=== PATIENT | male | born 1955 | race Caucasian/White ===

== ENCOUNTER → 2023-08-25 09:55 | Outpatient (REF) | payer MEDICARE, OTHER, SELFPAY | LOC: HWRAD 09:55 | PROVIDERS: ATTENDING PHYSICIAN Internal Medicine Rheumatology; FAMILY PHYSICIAN Family Medicine | DX: M47.812 Spondylosis without myelopathy or radiculopathy, cervical region (principal) | CPT/HCPCS: 72040 ==

== ENCOUNTER → 2023-09-14 13:41 | Outpatient (REF) | payer MEDICARE, OTHER, SELFPAY | LOC: HWRAD 13:41 | PROVIDERS: ATTENDING PHYSICIAN Nurse Practitioner Family; FAMILY PHYSICIAN Family Medicine | DX: R22.1 Localized swelling, mass and lump, neck (principal) | CPT/HCPCS: 76536 ==

== ENCOUNTER → 2024-02-17 06:20 | Day surgery (SDC) | payer MEDICARE, OTHER, SELFPAY ==
[2024-02-17 07:12] LABS: Glucose - Point of Care 126 mg/dl (70-99)
== END ==
LOC: GI 06:20
PROVIDERS: ATTENDING PHYSICIAN Specialist; FAMILY PHYSICIAN Family Medicine
DX: Z12.11 Encounter for screening for malignant neoplasm of colon (principal); K57.30 Diverticulosis of large intestine without perforation or abscess without bleeding; D12.2 Benign neoplasm of ascending colon; D12.4 Benign neoplasm of descending colon; K63.5 Polyp of colon; Z86.0101 Personal history of adenomatous and serrated colon polyps
CPT/HCPCS: 45385; 45380; 88305; 82962

== ENCOUNTER → 2024-08-14 09:01 | Outpatient (REF) | payer MEDICARE, OTHER, SELFPAY | LOC: HWRAD 09:01 | PROVIDERS: ATTENDING PHYSICIAN Internal Medicine Rheumatology; FAMILY PHYSICIAN Family Medicine | DX: L40.50 Arthropathic psoriasis, unspecified (principal); M47.816 Spondylosis without myelopathy or radiculopathy, lumbar region; M47.819 Spondylosis without myelopathy or radiculopathy, site unspecified; M54.50 Low back pain, unspecified; R29.890 Loss of height | CPT/HCPCS: 72202 ==

== ENCOUNTER 2025-02-10 11:24 | Inpatient (IN) | payer MEDICARE, OTHER, SELFPAY ==
[2025-02-08 21:03] VITALS: BP 110/73
[2025-02-08 21:10] LABS: Glucose - Point of Care 114 mg/dl (70-99)
[2025-02-08 21:49] LABS: Hematocrit 47.6 % (39.0-52.0); Hemoglobin 16.2 g/dL (13.0-18.0); Mean Corp Hgb Conc. 34.0 g/dL (33.0-37.0); Mean Corpuscular Volume 93.7 fL (80.0-94.0); Nucleated Red Blood Cells % 0 % (-); Platelet Count 200 10^3/uL (130-400); Red Cell Dist. Width 12.7 % (11.5-14.5)
[2025-02-08 22:07] VITALS: BP 120/76
[2025-02-08 22:07] LABS: ALT (SGPT) 35 U/L (0-50); AST (SGOT) 24 U/L (17-59); Albumin 4.1 g/dl (3.5-5.0); Alkaline Phosphatase 49 U/L (38-126); Blood Urea Nitrogen 30 mg/dl (9-20); Calcium 9.7 mg/dl (8.4-10.2); Carbon Dioxide 23 mmol/L (22-30); Chloride 99 mmol/L (98-107); Glucose 116 mg/dl (70-99); Potassium 3.5 mmol/L (3.5-5.1); Sodium 128 mmol/L (135-145); Total Protein 6.7 g/dl (6.3-8.2); eGFR 33.03
[2025-02-08 22:11] VITALS: BMI 31.8
[2025-02-08 23:00] VITALS: BP 148/85
--- NOTE | 2025-02-08 23:03 | ED.GENMED ---
History of Present Illness
General
Chief Complaint: Change in Mental Status
Source: patient
Time Seen by Provider: 02/08/25 22:28
History of Present Illness
History of Present Illness:
This patient is a 69-year-old male presents emergency department after awakening this morning feeling nauseous. He then states that he also had 'mild' headache on the right side since this morning, gradual in onset, not worst of life. At around 4
PM today he noticed that he had trouble remembering things and generally felt confused. He describes going shopping, and as he was driving he noticed that he was weeding. He denies double vision or amaurosis, but said that it almost felt like
something was in his eye 'on the right side'. Later on in the evening, he heard his phone ringing but just did not know how to find it. He eventually answered it at approximately 7:50 PM and his hydrogen operator, who is bedside, describes that his speech
seemed clear but he had trouble finishing his sentences. Patient confirms that he knew what he wanted to say but had difficulty getting the words out. He stated to her 'I am confused', also stated 'I do not know what is going on'. This lasted at
least a few hours and then fully resolved. He denies associated numbness, tingling, focal weakness, severe headache, double vision, dizziness, or other symptoms.
Past History
Past History
ED Past Medical History: Other (Glaucoma, diabetes)
Social History
Tobacco: Non-smoker
Alcohol: None
Drug: None
Living: alone
Phy Exam
Physical Exam
Physical Exam:
GENERAL: Alert , in no apparent distress
EYE: pupils equal and reactive, EOMI, no photophobia
NECK: Supple, no significant adenopathy.
ENT: o/p clr, mmm.
CARDIAC: Regular rate and rhythm .
LUNGS: Clear breath sounds bilaterally, no acute respiratory distress, no wheezes/rales/rhonchi
ABDOMEN: Soft, without focal tenderness, no r/g, no cvat
NEUROLOGICAL: Alert and oriented, speech clear, [id number]-ct-tmim normal, cranial nerves II through XII intact, motor 5 out of 5, sensory intact to light touch, NIH equal to 0
SKIN: Warm and dry, skin intact.
MUSCULOSKELETAL: No edema, well perfused.
PSYCH: Normal and appropriate interaction.
Course
Orders/Labs/Results
Orders:
Orders
02/08/25 21:08
EKG [Electrocardiogram (*1)] Urgent
Reason for Study: Vertigo / Dizzy
EKG- Treatment ONCE
02/08/25 21:43
Complete Blood Count/With Diff Urgent
Comprehensive Metabolic Panel Urgent
02/08/25 23:02
CT Head W/o Iv Contrast Urgent
Comment:
Reason For Exam: aphasia, confusion
02/09/25 00:00
Aspirin 325 mg PO NOW STA
02/09/25 00:05
0.9% Sodium Chloride 1000 ml [Nss] 1,000 ml IV BOLUS
02/09/25 00:45
Admit/Transfer Patient As Directed
Co-Sign Provider:
Level of Care: Observation services
Assign to:: Telemetry
Physician / Group: anais
Diagnosis: TIA
Reason for Telemetry: CVA/TIA
Date to Stop Telemetry: 02/12/25
Time to Stop Telemetry: 11:00
PRN Pain Medication Management As Directed
May give lesser potent ordered pain med per pt: Yes
preference::
Protocol:: Medication orders for pain may be administered in a
manner that supports deferring to patient preference
when the pt is:
- Requesting an ordered lesser potent pain medication.
Least to most potent pain medications are defined
as: acetaminophen < NSAID < tramadol < opioids
(morphine, oxycodone, hydromorphone).
- Requesting a lesser dose of the same medication IF
ORDERED.
- Requesting a less intrusive route of administration
if both routes are prescribed by the provider (PO <
IV).
02/09/25 00:46
Code Status As Directed
Resuscitation Status: Full Code
02/09/25 01:45
Acetaminophen [Tylenol/Feverall] 650 mg RECTAL Q4HPRN PRN
Acetaminophen [Tylenol] 650 mg PO Q4HPRN PRN
Dextrose 50%-Water [Dextrose 50% Syringe] 12.5 grams IV [id number] PRN
Glucagon [GlucaGen] 1 mg IM PRN PRN
02/09/25 01:45
Case Management Consult ONCE
Case Management Consult: Discharge Planning
Comment: stroke/tia
Consult Notification Routine
Specialty to Notify: Neurology
Date consulting provider notified: 02/09/25
Time consulting provider notified: 07:43
Notified:: Provider
DIETARY IP CONSULT Routine
Reason for Consult: stroke/TIA
NEUROLOGY CONSULT Routine
Consulting Provider: Anna Marie Dior
Was physician already notified: No
Reason for consult: TIA suspected
Warehouse Engineer Urgent
Activity As Directed
Activity Level: With Assistance
Bedside Glucose Monitoring As Directed
Frequency: AC&HS
Additional Instructions:: Change to q6h if pt on TPN, tube feeding or not eating
NIH Stroke Scale As Directed
Directions: Per protocol
Comment: every shift and with any change in condition or mental status
Neurological Checks As Directed
Frequency: q4h
Additional Instructions:: q4h x 24h upon admission to the floor, then qshift & with any change in condition
and mental status
Orthostatic Vital Signs As Directed
Orthostatic VS Frequency: Daily
Patient Education As Directed
Type: Stroke education packet
Comment: provide to patient and family
Swallow Screening CVA/TIA ONLY As Directed
Comment: NPO until swallowing screening completed
If patient FAILS swallow screening:: NPO, Speech Therapy consult, Aspiration Precautions
If patient PASSES swallow screening, diet:: 1800 chito/ 15 CHO Diabetic
Above diet order entered?: Yes- passed screening
Vital Signs As Directed
Frequency: Per unit guidelines
Ot Eval And Treat Routine
Pt Eval And Treat Routine
Activity Level: With Assistance
Speech Therapy Eval & Treat Routine
DX Deep Vein Thrombosis Video Routine
02/09/25 02:00
Flush (0.9% Sodium Chloride) [Flush (Nss)] See Dose Instructions IV PER PROTOCOL
02/09/25 02:45
Calcium 200mg(Ca. Carb. 500mg) [Tums Chewable Tablet] 200 mg PO NOW STA
02/09/25 03:43
Osmolality, Random Urine Routine
Date Specimen was Collected: 02/09/25
Time Specimen was Collected: 03:41
Urinalysis Routine
Date Specimen was Collected: 02/09/25
Time Specimen was Collected: 03:41
Urine Microscopic Routine
Date Specimen was Collected: 02/09/25
Time Specimen was Collected: 03:41
Urine Sodium Routine
Date Specimen was Collected: 02/09/25
Time Specimen was Collected: 03:41
02/09/25 Breakfast
2000 calorie (17 carb) Diabetic
At Your Request: Full Participation
Does patient need a safe tray?: No
02/09/25 07:30
Insulin Aspart Corrective Low [Novolog Flexpen-Low Resistance] See Protocol SC AC
02/09/25 08:00
Aspirin Chewable [Low Strength Aspirin] 81 mg PO DAILY
Clopidogrel Bisulfate [Plavix] 75 mg PO DAILY
Dorzolamide HCl [Trusopt 2% Ophthalmic Solution] 1 drop BOTH EYES BID
Losartan [Cozaar] 100 mg PO DAILY
02/09/25 08:19
Cardiovascular Evaluation IN AM
Complete Blood Count/No Diff IN AM
Comprehensive Metabolic Panel Routine
Creatine Phosphokinase Routine
Comment: ADD ON
Direct Bilirubin Routine
GGT [GGTP] IN AM
Glycohemoglobin (HgbA1c) IN AM
Magnesium IN AM
TSH Reflex To Free T4 Routine
Comment: ADD ON
02/09/25 09:[address] Non Medication Order As Directed
Physician Order: please complete home med rec for this patient. Thank you
Above order entered?: Yes
02/09/25 09:51
MR Brain W/o & With Contrast Routine
Comment:
Reason For Exam: Encephalopathy, chronic immunosuppression
OK for patient to be off Cardiac Monitoring for MRI: No
Recent pill cam endoscopy?: No
02/09/25 12:44
Urine Drug Abuse Screen Routine
Date Specimen was Collected: 02/09/25
Time Specimen was Collected: 12:19
02/09/25 14:30
0.9% Sodium Chloride 1000 ml [Nss] 1,000 ml IV 80 mls/hr
02/09/25 18:00
Atorvastatin [Lipitor] 40 mg PO QPM
Enoxaparin Sodium [Lovenox] 40 mg SC QPM
Latanoprost [Xalatan Ophthalmic Solution] 1 drop BOTH EYES QPM
02/09/25 22:00
Insulin Glargine Lantus [Lantus] 20 units Subcutaneous Insulin Syringe [Syringe-Insulin] 0 unit SC HS
02/10/25 07:26
Basic Metabolic Panel IN AM
Complete Blood Count/No Diff IN AM
02/12/25 11:00
DC Protocol for Telemetry ONCE
Abnormal Lab Results
02/08/25 02/08/25 02/09/25
21:10 21:43 03:43
WBC 10.9 H 10^3/uL
(4.8-10.8)
MCH 31.9 H pg
(27.0-31.0)
Absolute Neuts (auto) 7.6 H 10^3/uL
(1.4-6.5)
Absolute Monos (auto) 1.5 H 10^3/uL
(0.1-0.6)
Lymphocytes % 15.0 L %
(20.5-51.1)
Monocytes % 14.0 H %
(1.7-9.3)
Sodium 128 L mmol/L
(135-145)
BUN 30 H mg/dl
(01-05)
Creatinine 2.1 H mg/dL
(0.7-1.3)
Glucose 116 H mg/dl
()
Hemoglobin A1c
Total Bilirubin 3.6 H mg/dl
(0.2-1.3)
Direct Bilirubin
Total Protein
Urine Ketones 1+ A
(Negative)
Urine Osmolality 202 L mOsm/kg
(300-900)
Urine Sodium 20 L mmol/L
(30-90)
Urine Albumin 1+ A
(Neg - Trace)
POC Glucose 114 H mg/dl
()
02/09/25 02/09/25 02/09/25
08:19 09:06 11:49
WBC
MCH 32.5 H pg
(27.0-31.0)
Absolute Neuts (auto)
Absolute Monos (auto)
Lymphocytes %
Monocytes %
Sodium 134 L mmol/L
(135-145)
BUN 28 H mg/dl
(01-05)
Creatinine 1.5 H mg/dL
(0.7-1.3)
Glucose 148 H mg/dl
(-99)
Hemoglobin A1c 9.3 H %
(4.0-5.9)
Total Bilirubin 3.4 H mg/dl
(0.2-1.3)
Direct Bilirubin 0.5 H mg/dl
(0.0-0.4)
Total Protein 6.2 L g/dl
(6.3-8.2)
Urine Ketones
Urine Osmolality
Urine Sodium
Urine Albumin
POC Glucose 143 H mg/dl 240 H mg/dl
() ()
02/09/25 02/09/25 02/10/25
15:51 21:20 07:26
WBC
MCH 31.9 H pg
(27.0-31.0)
Absolute Neuts (auto)
Absolute Monos (auto)
Lymphocytes %
Monocytes %
Sodium
BUN 21 H mg/dl
(01-05)
Creatinine
Glucose 156 H mg/dl
()
Hemoglobin A1c
Total Bilirubin
Direct Bilirubin
Total Protein
Urine Ketones
Urine Osmolality
Urine Sodium
Urine Albumin
POC Glucose 248 H mg/dl 179 H mg/dl
() ()
02/10/25
07:50
WBC
MCH
Absolute Neuts (auto)
Absolute Monos (auto)
Lymphocytes %
Monocytes %
Sodium
BUN
Creatinine
Glucose
Hemoglobin A1c
Total Bilirubin
Direct Bilirubin
Total Protein
Urine Ketones
Urine Osmolality
Urine Sodium
Urine Albumin
POC Glucose 152 H mg/dl
(70-99)
02/10/25 07:26
02/10/25 07:26
Vital Signs
Initial and Last Documented VS:
Initial Vital Signs
Temp Pulse Resp BP Pulse Ox
98 F 107 20 110/73 99
02/08/25 21:03 02/08/25 21:03 02/08/25 21:03 02/08/25 21:03 02/08/25 21:03
Last Documented Vital Signs
Temp Pulse Resp BP Pulse Ox
97.4 F 83 18 125/80 97
02/10/25 11:00 02/10/25 11:22 02/10/25 11:00 02/10/25 11:22 02/10/25 11:00
*Pulse Oximetry
SaO2: 95
Oxygen Mode of Delivery: Room air
Patient hypoxic: no
*Critical Care Note
Total Time (30-74mins, 75-104mins- exclusive of procedures): Not Applicable
Update Note
Update Note:
Patient presents to the Emergency Department with confusion
Number and Complexity of Problems Addressed at the Encounter
� Chronic conditions affecting care:
� Acute Exacerbation and/or Progression of Chronic Illness:
� Differential Diagnosis includes: But not limited to TGA, TIA, transient metabolic encephalopathy, electrolyte disorder, etc. etc.
Amount and/or Complexity of Data to be Reviewed and Analyzed
� I performed an independent evaluation of and my interpretation is:
EKG: Read by me, sinus tachycardia, right bundle branch block, no acute ischemia
CT: Read by vision, no acute hemorrhage herniation or hydrocephalus, no fracture, sinuses and mastoid air cells are clear
Xrays:
Laboratory Studies: Mild nonspecific leukocytosis, renal insufficiency no prior for comparison, mild hyponatremia
Other:
� Review of other/old records reveals:
� Clinical information was obtained by an independent historian: Vice President Of Recruiting who is bedside and describes phone call at which time he had aphasia
� Prescriptions/Medications Considered but not given:
� Further testing considered but not performed:
Risk of Complications and/or Morbidity or Mortality of Patient Management
� Social determinants of health affecting care:
� Discussion with other providers (PCP, Hospitalists, Consultants, etc):
� Escalation of care including admission/observation vs risk of discharge considered: 69-year-old male with episode of confusion and aphasia now fully resolved. Strong consideration for TIA. No acute stroke symptoms to warrant
TNK or IAT at this time. Will give a dose of aspirin now, admission for further care. Noted to have new BARRY (unclear prior values, pt denies hx of), ivf started, as well as nonspec hypoNa without acute sxs related to at this time (no dizziness,e
tc) Dr Avendano aware.
ED Attending Note
-
Portions of this chart may have been created with voice recognition software.� Occasional wrong word or��sound alike� substitutions may have occurred due to the inherent limitations of voice recognition software.
Discharge Plan
Departure
Patient Disposition: Admit
Date of Disposition: 02/09/25
Time of Disposition: 00:06
Admit to: Telemetry
Presentation/result/management discussed w/ accepting MD/DO: Hospitalist
Condition: Fair
Discharge Problem:
Aphasia, Acute renal insufficiency, Acute hyponatremia
Interventions
Interventions:
*Risk Screen - Suicide Last Done: 02/09/25 01:46
*General Assessment Last Done: 02/08/25 21:03
*Neglect/Abuse Screening Last Done: 02/08/25 21:03
*ED- Fall Risk Assessment Last Done: 02/08/25 22:12
*ED COVID-19 Vaccine History Last Done: 02/09/25 01:46
*ED Influenza Vaccine History Last Done: 02/08/25 22:12
*Nursing Disposition Last Done: 02/09/25 01:26
ED- Pulmonary Assessment Last Done: 02/08/25 22:16
ED- Neurological Assessment Last Done: 02/08/25 22:12
ED- Cardiac Assessment Last Done: 02/08/25 22:16
ED Swallowing Screen Last Done: 02/09/25 00:00
Discharge Date and Time
Discharge Date/Time: 02/09/25 01:26
[2025-02-08 23:34] VITALS: BP 146/79
[2025-02-09] VITALS (12 sets, daily range): BP systolic 105–148; BP diastolic 60–98; PULSE 80–86; BMI 31.2
[2025-02-09] MEDS: ASPIRIN 325 MG PO (00:13)
--- NOTE | 2025-02-09 00:17 | HPS.HSE ---
Family Physician
-
Family Physician: Layne Mendez
Chief Complaint
-
Change in mental status
History of Present Illness
This is a 69-year-old male with past medical history significant for insulin-dependent diabetes, hyperlipidemia, hypertension, and glaucoma presenting to the emergency department with episode of altered mental status.
According to patient the symptoms began at around 4 PM when he started having confusion. He could not find his phone although he was getting called by a friend. He felt confused and did not know where he was. He had difficulty drinking water to
get a hold with water sounded clear. When his friend came by to see him approximately 4 hours later she found him confused and with word finding difficulty. He did not note any slurred speech. She did not note any facial asymmetry. Patient
himself denies any numbness tingling or weakness in his extremities. Double drove to the emergency department and then patient reported that he was driving to was left on the drive. He denies any blurry vision or double vision.
Patient reported that he took Mounjaro about 4 days ago and then developed abdominal discomfort and reflux symptoms since then. A reported that he was bringing up a bit of material. He denies abdominal pain. He was unable to tolerate p.o. well
and he has been drinking water only. He has continued to use his usual medications but did not take his Lantus the last 2 nights.
In the emergency department he was afebrile, blood pressure was 146/80 with a pulse of 96 and he was satting 94% on room air. ECG shows a sinus tachycardia at a rate of 101 with right bundle branch block which is unchanged from prior. CT of the
head shows no acute interval changes.
He has CBC notable for a WBC of 10.9 globin of 16 and a platelet of 200. Sodium was 128, otherwise electrolytes were all in the normal range and BUN/creatinine were 30 and 2.1. T. bili was 3.6 otherwise LFTs were normal.
Medical History
Past Medical History
Past Medical History: Reports HTN, Hypercholesterolemia, NIDDM and Other (Obesity, psoriatic arthritis, intra-atrial septal aneurysm with PFO, glaucoma)
Past Surgical History: Reports Orthopedic
Social History
Tobacco: Non-smoker
Alcohol: None
Drug: None
Personal:
Living: With Family
Family History
Family History: Not pertinent
Allergies / Home Medications
Allergies reflects when Allergies were last updated in [facility].
Home Medications with original date entered in [facility]
Allergy/Medication List:
Allergies
Allergy/AdvReac Type Severity Reaction Status Date / Time
Penicillins Allergy Unknown Verified 02/08/25 21:02
Home Medications
atorvastatin 40 mg tablet 40 mg PO QPM 02/09/25
dorzolamide 2 % eye drops drp 02/09/25
latanoprost 0.005 % eye drops drp 02/09/25
losartan 100 mg-hydrochlorothiazide 25 mg tablet 1 tab PO DAILY 02/09/25
Review of Systems
-
Constitutional: Reports No Symptoms
EENT: Reports No Symptoms
Respiratory: Reports No Symptoms
Cardiac: Reports No Symptoms
Abdomen/GI: Reports Nausea
: Reports No Symptoms
Musculoskeletal: Reports No Symptoms
Skin: Reports No Symptoms
Neurological: Reports Other (Confusion)
Endocrine: Reports No Symptoms
Hematologic/Lymphatic: Reports No Symptoms
Psych: Reports No Symptoms
Physical Exam
Vital Signs
Vital Signs
Temp Pulse Resp BP Pulse Ox
98 F 96 17 146/79 94
02/08/25 21:03 02/08/25 23:45 02/08/25 23:45 02/08/25 23:34 02/08/25 23:45
Physical Exam
General: Well Developed, Well Nourished and No Apparent Distress
HEENT: NormoCephalic, Moist mucous membranes and Atraumatic
Respiratory: Clear
Cardiac: S1/S2 and Regular Rhythm; No Murmur or Rub
GI: Soft, Non Tender and Normal Bowel Sounds; No Organomegaly
Rectal: Deferred by Provider
Genito-urinary: Clear Urine
Musculoskeletal: No Clubbing, No Cyanosis and No Edema
Skin: No Rash
Neuro: AO x 3, Cranial Nerves Intact and No Sensory Deficits; No Slurred Speech or Facial Droop
Hematologic/Lymphatic: No Lymphadenopathy
Psych: Calm
Laboratory Results
-
02/08/25 21:43
02/08/25 21:43
Laboratory Results
Total Bilirubin 3.6 mg/dl (0.2-1.3) H 02/08/25 21:43
AST 24 U/L (17-59) 02/08/25 21:43
ALT 35 U/L (0-50) 02/08/25 21:43
Alkaline Phosphatase 49 U/L (38-126) 02/08/25 21:43
Data Reviewed
-
CT Scan: Report Reviewed by me
Medical Tests (Nuc Med, Echo, EKG etc): Image Personally Visualized and interpreted
Lab Data: Labs Reviewed by me
Impression/Plan
-
IMPRESSION:
69-year-old with past medical history of hypertension, insulin-dependent diabetes, hyperlipidemia presenting to the emergency department with transient episode of confusion and word finding difficulty as well as mild gait abnormalities. Patient's
symptoms are now resolved for 4 hours or more after onset. Currently NIHSS equals 0. CT scan was negative. ECG was unremarkable and labs were mostly unremarkable except for hyponatremia at 128, CKD with a creatinine of 2.1 and a total bilirubin
of 3.6.
PLAN:
TIA -possibly TIA given transient neurological deficits. ABCD2 score equals = 4, high risk for CVA
-Admit to telemetry observation
-Start dual antiplatelet therapy
-MRI in a.m.
-Carotid ultrasound
-Echocardiogram
-Lipid panel and A1c
-Neurochecks every 4 hours
-Neurology consultation
Hyponatremia -episode of nausea but no vomiting in the setting of Mounjaro use. Decreased p.o. intake. Patient is also on hydrochlorothiazide.
-Check urine osmolality's and sodium
-Given 1 L of normal saline in the ED
-Check orthostatics in a.m.
-Check TSH
-hold HCTZ
- free water restriction for now 1200 ml
-Repeat serum sodium in a.m.
Renal insufficiency - Suspect CKD with DM II
- obtain records from [facility]
- avoid nephrotoxins
- monitor i/os
DM 2
-Patient is on Lantus 30 at bedtime, continue at 20 for now
-Sliding scale
Isolated hyperbilirubinemia
- Check GGT, if positive will get an ultrasound in a.m.
DVT prophylaxis�Lovenox subcu
CODE STATUS�full code
[2025-02-09] MEDS: NSS 1000 IV ×2 (00:24→15:44)
--- NOTE | 2025-02-09 02:45 | W.PN.UPDATE ---
Update Note
Progress Note Update
per RN patient passed swallowing test. Will place order for diabetic diet
[2025-02-09] MEDS: TUMS CHEWABLE TABLET 200 MG PO (02:52)
[2025-02-09 03:54] LABS: Urine Character Clear (Clear)
[2025-02-09 04:12] LABS: Urine Red Blood Cell 0-2 /HPF (0-2)
[2025-02-09 06:26] LABS: Urine Squamous Cell 0-2 /LPF (Few)
--- NOTE | 2025-02-09 07:31 | CON.NEURO ---
Consultation
Order
Date of Consultation: 02/09/25
Requesting Provider: Zachary Leahy MD
Reason for Consult: TIA
Neurology Consultation Note.
HPI: This is a 69-year-old right-handed immunocompromised man who presented to [facility] on 09/04/2024 with transient encephalopathy. The patient reports that yesterday after returning home from shopping, he became confused and
couldn't figure out how to answer the phone. He found himself on the floor without remembering how he got there, though he does remember getting himself back up. When his friend called around 4 o'clock and he eventually answered, he wasn't making
any sense when talking. He reports having a slight headache but describes it as nothing major, and currently denies headache, change in vision, strength, balance or sensation. No history of seizures.
The patient has diabetes and takes insulin regularly. He increased Mounjaro dose approximately 3 weeks ago. Mr. Cruz has been receiving massage therapy for his neck pain.
ER VS: 110/73, 107, afebrile.
EKG: Sinus tachycardia, QTcB Int : 490 ms.
PDMP: No prescribed medication
Labs: Glucose�116, sodium�128, WBCs�10.9, UA�positive for ketones 1+
CT head wo contrast�mild to moderate atrophy.
PMH: Interatrial septal aneurysm with PFO, psoriatic arthritis on Remicade, HTN, DLP, DM, BPH, LS, Cervical DJD with radiculopathy, astigmatism, glaucoma
SH: Lives alone, retired [employer] programmer, non-smoker, no history excessive alcohol
FH: mother: from septicemia, father: prostate cancer
All: Penicillins, macrolide
ROS: Constitutional: Negative. Negative for chills, fever and unexpected weight change.
HENT: HEENT: Positive for transient headache
Genitourinary: Negative for loss of bladder control.
Neurological: Negative for weakness or numbness.
General: Well developed. In no acute distress.
Cardio: Regular rate and rhythm without murmur. Extremities are without cyanosis or edema.
Neuro:
Mental Status: Alert, oriented to person, place, and date. Normal attention and recall. Good fund of knowledge. Follows complex requests across the midline. Comprehension, naming, and repetition intact. Immediate recall 3/3.
Cranial Nerves: Pupils are equally round and reactive to light. EOMs full. Visual staley full to confrontation. No ptosis. No nystagmus. V1-V3 intact to light touch and pinprick bilaterally, symmetric. Face symmetric. Normal hearing AU. The
palate elevated well. SCMs and traps 5/5. Tongue midline. No dysarthria.
Motor: Normal bulk and tone. No pronator or arm drift. Strength 5/5 throughout. No clonus.
Reflexes: 2+ throughout the upper extremities and knees. Plantar responses flexor bilaterally.
Sensory: Normal vibration at the ankles
Coordination: No dysmetria or tremor.
Gait: deferred
Assessment and Plan:
I. Transient encephalopathy. Differential diagnosis includes metabolic (hyponatremia) versus vascular versus ictal.
II. Interatrial septal aneurysm with PFO
III. Moderate hyponatremia
IV. Psoriatic arthritis on Remicade
-Continue Telemetry monitoring
-Brain MRI w/wo meaghan
-Please check HbA1C, LDL, TFTs, CK, ua tox
- Continue aspirin 81 mg once a day
-Routine EEG
-DVT prophylaxis.
I personally reviewed all radiology and labs along with past medical records pertinent to current medical problems. Total time spent in patient care is 60 minutes.
Thank you for allowing us to participate in the care of this patient. We will continue to follow. Please do not hesitate to contact us with any questions or concerns.
Subjective/Objective
Subjective Data
Date of Service: February 09, 2025
Objective Data
Vital Signs
Temp Pulse Resp BP Pulse Ox
36.6 C 98 18 125/70 95
02/09/25 03:00 02/09/25 03:00 02/09/25 03:00 02/09/25 03:00 02/09/25 03:00
Sodium 128 mmol/L (135-145) L 02/08/25 21:43
Potassium 3.5 mmol/L (3.5-5.1) 02/08/25 21:43
BUN 30 mg/dl (9-20) H 02/08/25 21:43
Glucose 116 mg/dl (70-99) H 02/08/25 21:43
Calcium 9.7 mg/dl (8.4-10.2) 02/08/25 21:43
Patient Allergies
Penicillins Allergy (Verified 02/08/25 21:02)
Unknown
erythromycin base Adverse Reaction (Verified 02/09/25 01:57)
Nausea / Vomiting
Medications
-
Active Medications
Generic Name Dose Route Start Last Admin
Trade Name Freq PRN Reason Stop Dose Admin
Acetaminophen 650 mg 02/09/25 01:45
Acetaminophen 650 Mg Rectal Suppository RECTAL 03/09/25 01:44
Q4HPRN PRN
ALEGRE, mild pain, or temp >100.4F
Acetaminophen 650 mg 02/09/25 01:45
Acetaminophen 325 Mg Tablet PO 03/09/25 01:44
Q4HPRN PRN
ALEGRE, mild pain, or temp >100.4F
Aspirin 81 mg 02/09/25 08:00
Aspirin 81 Mg Chewable Tablet PO 03/09/25 07:59
DAILY BANDAR
Atorvastatin Calcium 40 mg 02/09/25 18:00
Atorvastatin (Lipitor) 40 Mg Tablet PO 03/09/25 17:59
QPM BANDAR
Clopidogrel Bisulfate 75 mg 02/09/25 08:00
Clopidogrel 75 Mg Tablet PO 03/09/25 07:59
DAILY BANDAR
Dextrose 12.5 grams 02/09/25 01:45
Dextrose 50% (0.5 Grams/Ml) 50 Ml Syringe IV 03/09/25 01:44
[id number] PRN
hypoglycemia
Protocol
Dorzolamide HCl 1 drop 02/09/25 08:00
Dorzolamide 2% (Ophthalmic Solution) 10 Ml Bottle BOTH EYES 03/09/25 07:59
BID BANDAR
Enoxaparin Sodium 40 mg 02/09/25 18:00
Enoxaparin Sodium 40 Mg/0.4 Ml Syringe SC 03/09/25 17:59
QPM BANDAR
Glucagon 1 mg 02/09/25 01:45
Glucagon 1 Mg Vial IM 03/09/25 01:44
PRN PRN
hypoglycemia
Protocol
Insulin Glargine 20 units/ 0.2 mls @ 0 mls/hr 02/09/25 22:00
Device SC 03/09/25 21:59
HS BANDAR
As Directed
Insulin Aspart 0 units 02/09/25 07:30
Insulin Aspart Low Resistance 300 Units/3 Ml Pen.Injctr SC 03/09/25 07:29
AC BANDAR
Protocol
Latanoprost 1 drop 02/09/25 18:00
Latanoprost 0.005% (Ophthalmic Solution) 2.5 Ml Bottle BOTH EYES 03/09/25 17:59
QPM BANDAR
Losartan Potassium 100 mg 02/09/25 08:00
Losartan 100 Mg Tablet PO 03/09/25 07:59
DAILY BANDAR
Sodium Chloride 0 flush 02/09/25 02:00
Sodium Chloride 0.9% (Flush) Syringe IV 03/09/25 01:59
PER PROTOCOL BANDAR
Home Medications
�Medication �Instructions �Recorded
Levemir FlexPen TIDWMEAL 02/09/25
Mounjaro WEEKLY 02/09/25
Tresiba FlexTouch U-100 28 unit HS 02/09/25
atorvastatin 40 mg tablet 40 mg PO QPM 02/09/25
dorzolamide 2 % eye drops drp BOTH EYES BID 02/09/25
latanoprost 0.005 % eye drops drp BOTH EYES HS 02/09/25
losartan 100 1 tab PO DAILY 02/09/25
mg-hydrochlorothiazide 25 mg tablet
timolol drp BOTH EYES BID 02/09/25
Vital Signs and Labs
-
Vital Signs and Labs:
Vital Signs
Temp Pulse Resp BP Pulse Ox
36.5 C 79 16 130/75 98
02/09/25 07:45 02/09/25 07:45 02/09/25 07:45 02/09/25 07:45 02/09/25 07:45
Lab Results
02/09/25 08:19
02/09/25 08:19
Sodium 134 mmol/L (135-145) L 02/09/25 08:19
Potassium 3.7 mmol/L (3.5-5.1) 02/09/25 08:19
BUN 28 mg/dl (9-20) H 02/09/25 08:19
Glucose 148 mg/dl (70-99) H 02/09/25 08:19
Calcium 9.5 mg/dl (8.4-10.2) 02/09/25 08:19
LDL Cholesterol, Calc 34 mg/dl 02/09/25 08:19
Medications
-
Medications:
Generic Name Dose Route Start Last Admin
Trade Name Freq PRN Reason Stop Dose Admin
Acetaminophen 650 mg 02/09/25 01:45
Acetaminophen 650 Mg Rectal Suppository RECTAL 03/09/25 01:44
Q4HPRN PRN
ALEGRE, mild pain, or temp >100.4F
Acetaminophen 650 mg 02/09/25 01:45
Acetaminophen 325 Mg Tablet PO 03/09/25 01:44
Q4HPRN PRN
ALEGRE, mild pain, or temp >100.4F
Aspirin 81 mg 02/09/25 08:00 02/09/25 09:21
Aspirin 81 Mg Chewable Tablet PO 03/09/25 07:59 81 mg
DAILY BANDAR Administration
Atorvastatin Calcium 40 mg 02/09/25 18:00
Atorvastatin (Lipitor) 40 Mg Tablet PO 03/09/25 17:59
QPM BANDAR
Clopidogrel Bisulfate 75 mg 02/09/25 08:00 02/09/25 09:21
Clopidogrel 75 Mg Tablet PO 03/09/25 07:59 75 mg
DAILY BANDAR Administration
Dextrose 12.5 grams 02/09/25 01:45
Dextrose 50% (0.5 Grams/Ml) 50 Ml Syringe IV 03/09/25 01:44
[id number] PRN
hypoglycemia
Protocol
Dorzolamide HCl 1 drop 02/09/25 08:00 02/09/25 09:22
Dorzolamide 2% (Ophthalmic Solution) 10 Ml Bottle BOTH EYES 03/09/25 07:59 1 drop
BID BANDAR Administration
Enoxaparin Sodium 40 mg 02/09/25 18:00
Enoxaparin Sodium 40 Mg/0.4 Ml Syringe SC 03/09/25 17:59
QPM BANDAR
Glucagon 1 mg 02/09/25 01:45
Glucagon 1 Mg Vial IM 03/09/25 01:44
PRN PRN
hypoglycemia
Protocol
Insulin Glargine 20 units/ 0.2 mls @ 0 mls/hr 02/09/25 22:00
Device SC 03/09/25 21:59
HS BANDAR
As Directed
Insulin Aspart 0 units 02/09/25 07:30 02/09/25 09:11
Insulin Aspart Low Resistance 300 Units/3 Ml Pen.Injctr SC 03/09/25 07:29 Not Given
AC BANDAR
Protocol
Latanoprost 1 drop 02/09/25 18:00
Latanoprost 0.005% (Ophthalmic Solution) 2.5 Ml Bottle BOTH EYES 03/09/25 17:59
QPM BANDAR
Losartan Potassium 100 mg 02/09/25 08:00 02/09/25 09:21
Losartan 100 Mg Tablet PO 03/09/25 07:59 100 mg
DAILY BANDAR Administration
Sodium Chloride 0 flush 02/09/25 02:00
Sodium Chloride 0.9% (Flush) Syringe IV 03/09/25 01:59
PER PROTOCOL BANDAR
Home Medications
-
Home Medications
Levemir FlexPen TIDWMEAL 02/09/25
Mounjaro WEEKLY 02/09/25
Tresiba FlexTouch U-100 28 unit HS 02/09/25
atorvastatin 40 mg tablet 40 mg PO QPM 02/09/25
dorzolamide 2 % eye drops drp BOTH EYES BID 02/09/25
latanoprost 0.005 % eye drops drp BOTH EYES HS 02/09/25
losartan 100 mg-hydrochlorothiazide 25 mg tablet 1 tab PO DAILY 02/09/25
timolol drp BOTH EYES BID 02/09/25
[2025-02-09 08:53] LABS: Hematocrit 45.2 % (39.0-52.0); Hemoglobin 15.9 g/dL (13.0-18.0); Mean Corp Hgb Conc. 35.2 g/dL (33.0-37.0); Mean Corpuscular Volume 92.4 fL (80.0-94.0); Platelet Count 204 10^3/uL (130-400); Red Cell Dist. Width 13.0 % (11.5-14.5)
[2025-02-09 09:08] LABS: Glucose - Point of Care 143 mg/dl (70-99)
[2025-02-09] MEDS: NOVOLOG FLEXPEN-LOW RESISTANCE SC (09:11)
[2025-02-09] MEDS: COZAAR 100 MG PO (09:21)
[2025-02-09] MEDS: PLAVIX 75 MG PO (09:21)
[2025-02-09] MEDS: LOW STRENGTH ASPIRIN 81 MG PO (09:21)
[2025-02-09] MEDS: TRUSOPT 2% OPHTHALMIC SOLUTION 1 DROP BOTH EYES ×2 (09:22→20:52)
[2025-02-09 09:24] LABS: ALT (SGPT) 29 U/L (0-50); AST (SGOT) 21 U/L (17-59); Albumin 3.7 g/dl (3.5-5.0); Alkaline Phosphatase 47 U/L (38-126); Blood Urea Nitrogen 28 mg/dl (9-20); Calcium 9.5 mg/dl (8.4-10.2); Carbon Dioxide 29 mmol/L (22-30); Chloride 101 mmol/L (98-107); Estimated Creatinine Clearance 52 ml/min; GGTP 25 U/L (15-73); Glucose 148 mg/dl (70-99); HDL Cholesterol 37 mg/dl; LDL Cholesterol, Calculated 34 mg/dl; Magnesium 1.8 mg/dl (1.6-2.3); Potassium 3.7 mmol/L (3.5-5.1); Sodium 134 mmol/L (135-145); Total Protein 6.2 g/dl (6.3-8.2); Very Low Density Lipoprotein 17 mg/dl (0-30); eGFR 49.47
[2025-02-09 09:40] LABS: Glycohemoglobin (HgbA1c) 9.3 % (4.0-5.9)
[2025-02-09 11:53] LABS: Glucose - Point of Care 240 mg/dl (70-99)
[2025-02-09] MEDS: NOVOLOG FLEXPEN-LOW RESISTANCE 2 UNITS SC ×2 (12:18→18:00)
--- NOTE | 2025-02-09 14:10 | W.PN.HOSP.TC ---
Today's Communication/Plan
-
see outlined plan below
Assessment / Plan
Assessment / Plan
Assessment:
Syncope
change in mental status
- possible TIA vs seizure vs metabolic encephalopathy
- ABCD2 score = 4, higher risk for CVA. continue ASA pending MRI. also on Plavix, will dc if MRI negative. Neurology following
- Carotid US, Echo and EEG pending
- Neuro following
Hyponatremia
NADIA, possible CKD in setting of type 2 DM (unknown stage)
- suspect in setting of recent vomiting, poor oral intake associated with recent increase in Mounjaro dosing as well as HCTZ effect
- hold HCTZ
- continue NSS
- check orthostatics
- follow BMP
Type 2 DM
- continue Lantus; home dose reduced for now to 20 units
- SSI
- A1c: 9.3%
Indirect hyperbilirubinemia
- GGT normal
- monitor
HLD - statin
Essential HTN
- hold ARB/HCTZ
DVT ppx: Lovenox
Code: Full
Anticipated Discharge: > 48 hours
Subjective/Interval History
-
Date of Service: February 09, 2025
resting comfortably, no complaints at present
denies any focal symptoms
family at bedside state patient is back to baseline
Objective Data
-
Labs:
Laboratory Results
02/09/25
08:19
WBC 6.7
Hgb 15.9
Hct 45.2
Plt Count 204
Sodium 134 L
Potassium 3.7
Chloride 101
Carbon Dioxide 29
BUN 28 H
Creatinine 1.5 H
Glucose 148 H
Calcium 9.5
Total Bilirubin 3.4 H
AST 21
ALT 29
Alkaline Phosphatase 47
Vital Signs:
Vital Signs
Temp Pulse Resp BP Pulse Ox
97.8 F 87 16 109/68 96
02/09/25 11:00 02/09/25 11:40 02/09/25 11:00 02/09/25 11:40 02/09/25 11:10
I&O
02/08/25 02/09/25 02/10/25
06:59 06:59 06:59
Intake Total 50 / 50
Output Total 500 / 500
Balance -450 / -450
Physical Exam
-
General: No Apparent Distress
HEENT: Normocephalic and Atraumatic
Respiratory: Negative Wheezes
Cardiac: Regular Rhythm and S1/S2
Genito-urinary: No Costovertebral Tender
Neuro: AO x 3
Psych: Calm
Data Reviewed
-
Total Time Spent with Patient (in minutes): 42
Labs: Labs Reviewed by me
--- NOTE | 2025-02-09 15:51 | CM ---
Met with patient at bedside
SADA explained; form signed @ 1543
Pharmacy verified: [facility] @ [address] [facility]
Lives alone; multilevel home; railings on stairs; powder room 1st floor
PLOF: independent w/ ambulation, stairs, and ADLs; drives; retired
NO SNF or Home Health utilization history
DME: Continuous Glucose Monitor
PT recommended Outpatient Therapy; Requested script from Attending
Friend or Family will provide transport home
Plan: Discharge to home when stable w/ script for outpatient PT
[2025-02-09 15:52] LABS: Glucose - Point of Care 248 mg/dl (70-99)
[2025-02-09] MEDS: LIPITOR 40 MG PO (18:01)
[2025-02-09] MEDS: XALATAN OPHTHALMIC SOLUTION 1 DROP BOTH EYES (18:02)
[2025-02-09] MEDS: LOVENOX 40 MG SC (18:03)
[2025-02-09 21:22] LABS: Glucose - Point of Care 179 mg/dl (70-99)
[2025-02-09] MEDS: LANTUS 0.2 UNITS SC (22:03)
[2025-02-10 03:22] VITALS: BP 126/74
[2025-02-10] MEDS: NSS 1000 IV (04:02)
[2025-02-10 07:00] VITALS: BP 137/75
[2025-02-10 07:52] LABS: Glucose - Point of Care 152 mg/dl (70-99)
[2025-02-10 07:59] LABS: Hematocrit 44.4 % (39.0-52.0); Hemoglobin 15.1 g/dL (13.0-18.0); Mean Corp Hgb Conc. 34.0 g/dL (33.0-37.0); Mean Corpuscular Volume 93.9 fL (80.0-94.0); Platelet Count 198 10^3/uL (130-400); Red Cell Dist. Width 13.1 % (11.5-14.5)
[2025-02-10 08:13] LABS: Blood Urea Nitrogen 21 mg/dl (9-20); Calcium 8.9 mg/dl (8.4-10.2); Carbon Dioxide 29 mmol/L (22-30); Chloride 105 mmol/L (98-107); Estimated Creatinine Clearance 77 ml/min; Glucose 156 mg/dl (70-99); Potassium 4.0 mmol/L (3.5-5.1); Sodium 140 mmol/L (135-145); eGFR > 60.00
[2025-02-10] MEDS: COZAAR 100 MG PO (08:14)
[2025-02-10] MEDS: LOW STRENGTH ASPIRIN 81 MG PO (08:14)
[2025-02-10] MEDS: PLAVIX 75 MG PO (08:14)
--- NOTE | 2025-02-10 08:14 | W.PN.NEURO.1 ---
Today's Communication / Plan
-
.
Subjective/Objective
Subjective Data
Date of Service: February 10, 2025
Neurology follow-up note
Mr. Cruz reports no complaints. No recurrent spells since admission.
Brain MRI showed no acute infarcts and moderate generalized volume loss.
PMH: Interatrial septal aneurysm with PFO, psoriatic arthritis on Remicade, HTN, DLP, DM, BPH, LS, Cervical DJD with radiculopathy, astigmatism, glaucoma
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
FH: mother: from septicemia, father: prostate cancer
All: Penicillins, macrolide
ROS: Constitutional: Negative. Negative for chills, fever and unexpected weight change.
HENT: HEENT: Positive for transient headache
Genitourinary: Negative for loss of bladder control.
Neurological: Negative for weakness or numbness.
General: Well developed. In no acute distress.
Cardio: Regular rate and rhythm without murmur. Extremities are without cyanosis or edema.
Neuro:
Mental Status: Alert, oriented to person, place, and date. Normal attention and recall. Good fund of knowledge. Follows complex requests across the midline. Comprehension, naming, and repetition intact.
Cranial Nerves: Pupils are equally round and reactive to light. EOMs full. Visual staley full to confrontation. No ptosis. No nystagmus. V1-V3 intact to light touch and pinprick bilaterally, symmetric. Face symmetric. Normal hearing AU. The
palate elevated well. SCMs and traps 5/5. Tongue midline. No dysarthria.
Motor: Normal bulk and tone. No pronator or arm drift. Strength 5/5 throughout. No clonus.
Coordination: No dysmetria or tremor.
Gait: deferred
Assessment and Plan:
I. Transient encephalopathy. Differential diagnosis includes metabolic (hyponatremia) versus ictal.
II. Interatrial septal aneurysm with PFO
III. Moderate hyponatremia
IV. Psoriatic arthritis on Remicade
V. Cerebral atrophy.
-Continue Telemetry monitoring
-OP Routine EEG
-Outpatient neurology follow-up
-May consider neuropsychological evaluation, amyloid PET scan
-Outpatient neurology follow-up
I personally reviewed all radiology and labs along with past medical records pertinent to current medical problems. Total time spent in patient care is 36 minutes.
Thank you for allowing us to participate in the care of this patient. Please do not hesitate to contact us with any questions or concerns
Objective Data
Vital Signs
Temp Pulse Resp BP Pulse Ox
36.8 C 74 16 137/75 98
02/10/25 07:00 02/10/25 07:00 02/10/25 07:00 02/10/25 07:00 02/10/25 07:00
Lab Results
02/10/25 07:26
02/10/25 07:26
Sodium 140 mmol/L (135-145) 02/10/25 07:26
Potassium 4.0 mmol/L (3.5-5.1) 02/10/25 07:26
BUN 21 mg/dl (9-20) H 02/10/25 07:26
Glucose 156 mg/dl (70-99) H 02/10/25 07:26
Calcium 8.9 mg/dl (8.4-10.2) 02/10/25 07:26
LDL Cholesterol, Calc 34 mg/dl 02/09/25 08:19
Ur Buprenorphine Negative (Negative) 02/09/25 12:44
Patient Allergies
Penicillins Allergy (Verified 02/08/25 21:02)
Unknown
erythromycin base Adverse Reaction (Verified 02/09/25 01:57)
Nausea / Vomiting
Vital Signs and Labs
-
Vital Signs and Labs:
Vital Signs
Temp Pulse Resp BP Pulse Ox
36.3 C 83 18 125/80 97
02/10/25 11:00 02/10/25 11:22 02/10/25 11:00 02/10/25 11:22 02/10/25 11:00
Lab Results
02/10/25 07:26
02/10/25 07:26
Sodium 140 mmol/L (135-145) 02/10/25 07:26
Potassium 4.0 mmol/L (3.5-5.1) 02/10/25 07:26
BUN 21 mg/dl (9-20) H 02/10/25 07:26
Glucose 156 mg/dl (70-99) H 02/10/25 07:26
Calcium 8.9 mg/dl (8.4-10.2) 02/10/25 07:26
LDL Cholesterol, Calc 34 mg/dl 02/09/25 08:19
Ur Buprenorphine Negative (Negative) 02/09/25 12:44
Home Medications
-
Home Medications
Tresiba FlexTouch U-100 28 unit SC HS 02/09/25
atorvastatin 40 mg tablet 40 mg PO QPM 02/09/25
dorzolamide 2 % eye drops 1 drp BOTH EYES BID 02/09/25
insulin aspart U-100 100 unit/mL (3 mL) subcutaneous pen (Novolog FlexPen U-100 Insulin aspart) See Rx Instructions .Route .COMPLEX Diabetes 02/09/25
latanoprost 0.005 % eye drops 1 drp BOTH EYES HS 02/09/25
timolol 1 drp BOTH EYES BID 02/09/25
aspirin 81 mg chewable tablet 81 mg PO DAILY #100 tabs 02/10/25
losartan 100 mg tablet 100 mg PO DAILY #30 tabs 02/10/25
[2025-02-10] MEDS: NOVOLOG FLEXPEN-LOW RESISTANCE 1 UNITS SC (08:49)
[2025-02-10] MEDS: TRUSOPT 2% OPHTHALMIC SOLUTION 1 DROP BOTH EYES (08:50)
--- NOTE | 2025-02-10 10:24 | PTOTSP ---
Speech Therapy Evaluation:
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 No overt s/sx of aspiration across trials, WBC WNL, pt without dysphagia hx, and MRI negative.
Recommend:
1. Regular solids and thin liquids
2. Meds as tolerated
3. General aspiration precautions
4. [employer] to s/o, please reconsult as indicated
[2025-02-10 11:00] VITALS: BP 138/85
[2025-02-10 11:20] VITALS: BP 170/93
[2025-02-10 11:22] VITALS: BP 125/80
[2025-02-10 11:35] LABS: Glucose - Point of Care 278 mg/dl (70-99)
[2025-02-10] MEDS: NOVOLOG FLEXPEN-LOW RESISTANCE 3 UNITS SC (11:52)
--- NOTE | 2025-02-10 12:09 | W.PN.HOSP.TC ---
Today's Communication/Plan
-
dc to home
Assessment / Plan
Assessment / Plan
Assessment:
Syncope
change in mental status
- possible TIA vs seizure vs metabolic encephalopathy
- ABCD2 score = 4, higher risk for CVA. continue ASA
- MRI negative; dc Plavix but keep daily baby ASA
- Carotid US, Echo and EEG outpatient with PCP To setup
- Neuro ok with DC today and have signed off
Hyponatremia
NADIA, possible CKD in setting of type 2 DM (unknown stage)
- suspect in setting of recent vomiting, poor oral intake associated with recent increase in Mounjaro dosing as well as HCTZ effect
- hold HCTZ
- continue NSS
- check orthostatics
- follow BMP
Type 2 DM
- continue Lantus
- SSI
- A1c: 9.3%
Indirect hyperbilirubinemia
- GGT normal
- monitor
HLD - statin
Essential HTN
- resume ARB, stop HCTZ component
- BP check with PCP in 1 week
DVT ppx: Lovenox
Code: Full
More than 30 minutes spent in discharge including
Final examination of the patient
Summarizing hospital stay
Instructions for continuing care to all relevant caregivers
Preparation of discharge records, prescriptions, and referral forms
Total time spent (in minutes): 41
Anticipated Discharge: Today
Subjective/Interval History
-
Date of Service: February 10, 2025
resting comfortably, no complaints
Objective Data
-
Labs:
Laboratory Results
02/10/25
07:26
WBC 6.2
Hgb 15.1
Hct 44.4
Plt Count 198
Sodium 140
Potassium 4.0
Chloride 105
Carbon Dioxide 29
BUN 21 H
Creatinine 1.0
Glucose 156 H
Calcium 8.9
Vital Signs:
Vital Signs
Temp Pulse Resp BP Pulse Ox
97.4 F 83 18 125/80 97
02/10/25 11:00 02/10/25 11:22 02/10/25 11:00 02/10/25 11:22 02/10/25 11:00
I&O
02/09/25 02/10/25 02/11/25
06:59 06:59 06:59
Intake Total 50 / 50 1480 / 1480
Output Total 500 / 500 1875 / 1875
Balance -450 / -450 -395 / -395
Physical Exam
-
General: No Apparent Distress
HEENT: Normocephalic and Atraumatic
Respiratory: Negative Wheezes
Cardiac: Regular Rhythm and S1/S2
GI: Soft and Nontender
Musculoskeletal: No Edema
Neuro: AO x 3
Psych: Calm
Data Reviewed
-
Total Time Spent with Patient (in minutes): 41
Labs: Labs Reviewed by me
--- NOTE | 2025-02-10 12:14 | W.DCSUMMARY ---
Discharge Summary
Discharge Data
Date of Admission: 02/09/25
Date of Discharge: 02/10/25
-
Pending Results: No
Hospital Course
69 y/o M with past medical history for insulin-dependent diabetes, hyperlipidemia, hypertension, and glaucoma presented to ER with change in mental status in setting of NADIA. Neurology was consulted given concern for TIA and he was placed on
ASA/Plavix but only kept on ASA with negative MRI - patient will have outpatient EEG/Echo/Carotid US via PCP.
He reports recently increasing home Mounjaro dosing and having poor oral intake and vomiting therefore was recommended to hold Mounjaro. HCTZ was stopped. Creatinine on admission was 2.1 but resolved to 1.0 after IV fluids.
He was discharged kim on 02/10/25.
Discharge Plan
-
Discharge Diagnosis/Procedures: acute kidney injuring with change in mental status, dizziness, now resolved
Condition: Fair
Diet: Diabetic, Carb Controlled
Activity: As tolerated
Bathing Restrictions: None
Others Tests: EEG, Carotid Ultrasound and Echo - PCP will arrange
Other Services: PT and OT
Referrals:
Layne Mendez MD [Family Provider, [facility]] - in one week
Referral Note: for BP check
Additional Discharge Medication Instructions: stop Losartan/HCTZ combo pill - now just on Losartan by itself. Stop Mounjaro and discuss with prescribing doctor(s) about changing due to side effects. continue baby aspirin daily.
Prescriptions:
New
aspirin 81 mg Tablet,Chewable
81 mg PO DAILY Qty: 100 0RF
losartan 100 mg Tablet
100 mg PO DAILY Qty: 30 0RF
Continued
latanoprost 0.005 % drops
1 drp BOTH EYES HS
atorvastatin 40 mg tablet
40 mg PO QPM
dorzolamide 2 % drops
1 drp BOTH EYES BID
timolol drops
1 drp BOTH EYES BID
Tresiba FlexTouch U-100
28 unit SC HS
Rx Instructions:
28 units at bedtime
insulin aspart U-100 [Novolog FlexPen U-100 Insulin] 100 unit/mL (3 mL) Insulin Pen
See Rx Instructions .ROUTE .COMPLEX
Rx Instructions:
with meal times
Discontinued
losartan-hydrochlorothiazide 100-25 mg tablet
1 tab PO DAILY
Mounjaro
12.5 mg SC WEEKLY
Discharge Orders:
Discharge Patient (As Directed); Ordered 02/10/25
Ordered By: Rangel Mcdonald
Discharge Date and Time
Print Language: SETSWANA
--- NOTE | 2025-02-10 12:50 | CM ---
Plan: Discharge to home; no needs
== END 2025-02-10 13:19 | disposition home or self-care (01) | DRG 683 ==
LOC: 4 WEST ACU 11:24
PROVIDERS: ADMITTING PHYSICIAN Internal Medicine; ATTENDING PHYSICIAN Internal Medicine; CONSULT PHYSICIAN Psychiatry & Neurology Neurology; EMERGENCY PHYSICIAN Emergency Medicine; FAMILY PHYSICIAN Family Medicine
DX: N17.9 Acute kidney failure, unspecified (principal); D84.9 Immunodeficiency, unspecified; E87.1 Hypo-osmolality and hyponatremia; G93.40 Encephalopathy, unspecified; R17 Unspecified jaundice; I25.3 Aneurysm of heart; Q21.12 Patent foramen ovale; Z79.4 Long term (current) use of insulin; E78.00 Pure hypercholesterolemia, unspecified; N18.9 Chronic kidney disease, unspecified; I12.9 Hypertensive chronic kidney disease with stage 1 through stage 4 chronic kidney disease, or unspecified chronic kidney disease; Z88.0 Allergy status to penicillin; E11.22 Type 2 diabetes mellitus with diabetic chronic kidney disease; L40.50 Arthropathic psoriasis, unspecified; N40.0 Benign prostatic hyperplasia without lower urinary tract symptoms; M47.812 Spondylosis without myelopathy or radiculopathy, cervical region; M54.12 Radiculopathy, cervical region; Z80.42 Family history of malignant neoplasm of prostate; E66.9 Obesity, unspecified; Z68.31 Body mass index [BMI] 31.0-31.9, adult; I45.10 Unspecified right bundle-branch block
CPT/HCPCS: 70450; 70553; 80048; 80053; 80061; 80306; 81003; 81015; 82248; 82550; 82962; 82977; 83036; 83735; 83935; 84300; 84443; 85025; 85027; 92610; 93005; 96360; 97162; 97166; 99285; A9575

== ENCOUNTER → 2025-02-19 07:40 | Outpatient (REF) | payer MEDICARE, OTHER, SELFPAY | LOC: DHVS 07:40 | PROVIDERS: ATTENDING PHYSICIAN Family Medicine | DX: G93.40 Encephalopathy, unspecified (principal); R40.4 Transient alteration of awareness; R47.01 Aphasia | CPT/HCPCS: 93880 ==

== ENCOUNTER → 2025-02-20 11:15 | Outpatient (REF) | payer MEDICARE, OTHER, SELFPAY ==
--- NOTE | 2025-02-21 13:49 | EEG.RPT ---
Electroencephalogram Report
Recording
Date of EE02/20/25
Type of EEG: Routine
Length of EEG recordin minutes
Done with Video Recording: Yes
Patient Status: Outpatient
Recording Conditions: Awake, Drowsy and Asleep
Hyperventilation Performed: No
Photic Stimulation Performed: Yes
Report
GREATER THAN 1 HOUR EEG INTERPRETATION:
Unremarkable EEG for age
CLINICAL CORRELATION:
A normal EEG does not rule out a diagnosis of epilepsy. If clinical suspicion for seizure persists, a prolonged recording may be warranted.
Clinical correlation is advised.
METHODS:
A 21 channel digitized electroencephalogram (EEG) was performed using the 10/20 international system of electrode placement and one-lead of ECG recorded. The Inofile quantitative EEG system was utilized.
ELECTROENCEPHALOGRAPHER IMPRESSION(S):
Quality of study
Good
Background
There was an unremarkable anterior-posterior voltage gradient of alpha frequency.
With eye opening the background activity changed to a low voltage mixture of frequencies.
There were no significant asymmetries of background activity noted.
Sleep
Drowsiness present
Stage 1 present
Stage 2 present
Photic Stimulation
No activation
ECG
Normal sinus rhythm
== END ==
LOC: EEG 11:15
PROVIDERS: ATTENDING PHYSICIAN Family Medicine
DX: G93.40 Encephalopathy, unspecified (principal)
CPT/HCPCS: 95813

== ENCOUNTER → 2025-03-01 08:05 | Outpatient (REF) | payer MEDICARE, OTHER, SELFPAY | LOC: HWRCS 08:05 | PROVIDERS: ATTENDING PHYSICIAN Family Medicine | DX: G93.40 Encephalopathy, unspecified (principal); R40.4 Transient alteration of awareness; I10 Essential (primary) hypertension | CPT/HCPCS: 93306 ==